=== PATIENT | male | born 1945 | race Caucasian/White ===

== ENCOUNTER 2021-03-07 13:24 | Emergency (ER) | payer OTHER ==
[~2021-03-07] VITALS: Ht 175.3 cm; Wt 77.1 kg
[2021-03-07 13:30] VITALS: BP 111/60
--- NOTE | 2021-03-07 13:30 | NUR ---
75 YO M BIBA WITH A C/C OF VOMITING X3 WITH COFFEE GROUND EMESIS. PT IS UBABLE BUT IS ALERT AND MAKES FACIAL EXPRESSIONS. PICC LINE ON DANNI. PMH: CHRONIC RESPIRATORY FAILURE, TRACH DEPENDENCE, PEG DEPENDENT, NECROTIZING AUTOIMMUNE MYOSITIS, DM 2, CKD, HTN, CAD, STROKE.
[2021-03-07] MEDS ORDERED: NACL 0.9% 1,000 ML IV ONE (14:00)
[2021-03-07 14:33] LABS: BASOPHILS # (AUTO) 0.1 K/uL (0.00-0.22); BASOPHILS % (AUTO) 0.6 % (0.0-2.0); EOSINOPHILS # (AUTO) 0.2 K/uL (0-0.4); EOSINOPHILS % (AUTO) 1.1 % (0.0-4.0); HEMATOCRIT 22.4 % (36-52); HEMOGLOBIN 7.3 g/dL (12.0-18.0); LYMPHOCYTES # (AUTO) 2.7 K/uL (2.0-11.5); LYMPHOCYTES % (AUTO) 14.7 % (20.5-51.1); MEAN CORPUSCULAR HEMOGLOBIN 31 pg (27-31); MEAN CORPUSCULAR HGB CONC 33 g/dL (33-37); MEAN CORPUSCULAR VOLUME 93.2 fL (80-94); MONOCYTES # (AUTO) 1.7 K/uL (0.8-1.0); MONOCYTES % (AUTO) 9.4 % (1.7-9.3); NEUTROPHILS # (AUTO) 13.7 K/uL (1.8-7.7); NEUTROPHILS % (AUTO) 74.2 % (42.2-75.2); PLATELET COUNT (AUTO) 325 K/uL (140-450); RED BLOOD CELL COUNT(AUTO) 2.41 MIL/uL (4.20-6.10); RED CELL DISTRIBUTION WIDTH 18.4 % (11.6-13.7); WHITE BLOOD COUNT (AUTO) 18.4 K/uL (4.8-10.8)
[2021-03-07 14:53] LABS: PROTHROMBIN TIME 10.9 secs (10.8-13.4)
[2021-03-07 14:55] LABS: ALBUMIN 2.5 g/dL (3.4-5.0); ANION GAP 8.2 (8-16); ASPARTATE AMINOTRANSFERASE 27 U/L (15-37); CARBON DIOXIDE 34.2 mmol/L (21-32); CHLORIDE 115 mmol/L (98-107); GLUCOSE 124 mg/dL (74-106); LIPASE 279 U/L (73-393); POTASSIUM 3.4 mmol/L (3.5-5.1); SODIUM SERUM 154 mmol/L (136-145); TOTAL BILIRUBIN 0.4 mg/dL (0.0-1.0)
[2021-03-07 15:01] LABS: CREATININE 4.1 mg/dL (0.6-1.3); UREA NITROGEN, BLOOD 154 mg/dL (7-18)
[2021-03-07 16:35] VITALS: BP 121/64
--- NOTE | 2021-03-07 16:47 | NUR ---
GAVE REPORT TO LAURA FROM [facility] FOR THE CONTINUITY OF CARE. [facility] TOOK PT VIA AMBULANCE.
--- NOTE | 2021-03-07 17:31 | NUR ---
Patient discharged with v/s stable. Written and verbal after care instructions given and explained. Patient alert, oriented and verbalized understanding of instructions. Ambulance Transport with to half-way. All questions addressed prior to discharge. ID band removed. Patient advised to follow up with PMD. NO Rx given. Patient educated on indication of medication including possible reaction and side effects. Opportunity to ask questions provided and answered.
== END 2021-03-07 16:35 ==
LOC: MED 13:24
DX: R11.10 Vomiting, unspecified (principal); J18.1 Lobar pneumonia, unspecified organism; E11.22 Type 2 diabetes mellitus with diabetic chronic kidney disease; I12.9 Hypertensive chronic kidney disease with stage 1 through stage 4 chronic kidney disease, or unspecified chronic kidney disease; N18.9 Chronic kidney disease, unspecified; Z86.73 Personal history of transient ischemic attack (TIA), and cerebral infarction without residual deficits; Z88.8 Allergy status to other drugs, medicaments and biological substances
CPT/HCPCS: 36415; 71045; 80053; 83690; 84484; 85025; 85610; 85730; 86886; 86900; 86901; 93005; 96360; 99285; J7030; Q0092

== ENCOUNTER 2021-03-19 16:06 | Inpatient (IN) | payer OTHER, SELFPAY ==
[~2021-03-19] VITALS: Ht 165.1 cm; Wt 74.4 kg
[2021-03-19 16:42] LABS: BASOPHILS % (AUTO) 0.2 % (0.0-2.0); MEAN CORPUSCULAR HGB CONC 33 g/dL (33-37); WHITE BLOOD COUNT (AUTO) 13.9 K/uL (4.8-10.8)
[2021-03-19 16:46] LABS: EOSINOPHILS # (AUTO) 1.2 K/uL (0-0.4); EOSINOPHILS % (AUTO) 8.5 % (0.0-4.0); LYMPHOCYTES # (AUTO) 1.5 K/uL (2.0-11.5); LYMPHOCYTES % (AUTO) 10.7 % (20.5-51.1); MEAN CORPUSCULAR HEMOGLOBIN 31 pg (27-31); MEAN CORPUSCULAR VOLUME 96.2 fL (80-94); MONOCYTES # (AUTO) 0.6 K/uL (0.8-1.0); MONOCYTES % (AUTO) 4.3 % (1.7-9.3); NEUTROPHILS # (AUTO) 10.6 K/uL (1.8-7.7); NEUTROPHILS % (AUTO) 76.3 % (42.2-75.2); PLATELET COUNT (AUTO) 254 K/uL (140-450); RED BLOOD CELL COUNT(AUTO) 1.82 MIL/uL (4.20-6.10); RED CELL DISTRIBUTION WIDTH 19.8 % (11.6-13.7)
[2021-03-19 16:57] VITALS: BP 105/70
[2021-03-19 17:06] LABS: HEMOGLOBIN 5.7 g/dL (12.0-18.0)
[2021-03-19 17:07] LABS: HEMATOCRIT 17.5 % (36-52)
--- NOTE | 2021-03-19 17:10 | NUR ---
PT KERRY TO BED 06 VIA ROMEL.
--- NOTE | 2021-03-19 17:15 | NUR ---
PT BIB SNF TRACH TO VENT FOR LOW HGB. PT ALERT ORIENTED. IV INSERTED TO RIGHT THUMB #20GUAGE BLOOD DRAWN AND SENT.
--- NOTE | 2021-03-19 19:16 | NUR ---
REPORT RECEIVED FROM STEF DOWLING FOR CONTINUITY OF PT CARE AT THIS TIME.
--- NOTE | 2021-03-19 19:38 | NUR ---
PT APPEARS TO BE RESTING W EYES CLOSED IN SUPINE AND SLIGHT R LATERAL POSITION W HOB SLIGHTLY ELEVATED. BED LOCKED IN LOWEST POSITION W X2 SIDERAILS UP FOR PT SAFETY. PT CONNNECTED TO MONITOR W VSS. PT CONNECTED TO VENT W SETTINGS OF A/C VC, 40% FiO2, 450 VT, PEEP 5, PT TOLERATING VENT WELL. NAD NOTED, WILL CONTINUE TO MONITOR.
[2021-03-19 19:44] VITALS: BP 100/33
[2021-03-19 20:11] LABS: ANION GAP 14.1 (8-16); ASPARTATE AMINOTRANSFERASE 26 U/L (15-37); CARBON DIOXIDE 25.9 mmol/L (21-32); CHLORIDE 125 mmol/L (98-107); GLUCOSE 96 mg/dL (74-106); TOTAL BILIRUBIN 0.2 mg/dL (0.0-1.0)
[2021-03-19 20:25] LABS: PROTHROMBIN TIME 10.9 secs (10.8-13.4)
[2021-03-19 20:45] LABS: CREATININE 4.9 mg/dL (0.6-1.3); SODIUM SERUM 160 mmol/L (136-145); UREA NITROGEN, BLOOD 118 mg/dL (7-18)
--- NOTE | 2021-03-19 21:00 | NUR ---
RENEE SWAB COLLECTED AND SENT TO LAB.
--- NOTE | 2021-03-19 21:12 | NUR ---
PT APPEARS TO BE RESTING W EYES CLOSED. CONNECTED TO VENT AND MONITOR. VSS. NAD NOTED WILL CONTINUE TO MONITOR.
[2021-03-19] MEDS ORDERED: OCTREOTIDE ACETATE 1.25 MG in NACL 0.9% 250 ML IV SCH (22:05)
[2021-03-19] MEDS ORDERED: SODIUM FERRIC GLUCONATE 125 MG in NACL 0.9% 100 ML IV SCH (22:05)
--- NOTE | 2021-03-19 23:05 | NUR ---
PT REPOSITIONED FOR COMFORT. VSS. BREATHING EVEN AND UNLABORED. NAD NOTED, WILL CONTINUE TO MONITOR.
--- NOTE | 2021-03-19 23:08 | NUR ---
2240 CHECKED PT ON VENT. NO SOB NOTED
--- NOTE | 2021-03-20 00:26 | NUR ---
NO SANDOSTATIN IN ER. HOUSE SUP CONTACTED.
--- NOTE | 2021-03-20 00:26 | NUR ---
Jolie perez in ED - 03/20/21 at 0026 by [email or web address] NO SANDOSTATIN IN ER. HOUSE SUP CONTACTED.
[2021-03-20] MEDS ORDERED: OCTREOTIDE ACETATE 1000 MCG/5 ML VIAL ONE (00:32)
--- NOTE | 2021-03-20 01:05 | NUR ---
PT BLOOD TRANSFUSION COMPLETED. VSS. PT DENIES ANY PAIN. NAD NOTED, WILL CONTINUE TO MONITOR.
[2021-03-20 01:21] VITALS: BP 95/47
--- NOTE | 2021-03-20 02:22 | NUR ---
Patient will be admitted to care of Michael BALL. Admited to telemetry. Will go to [id number]. Belongings list completed. Report to Fede FINCH.
[2021-03-20] MEDS ORDERED: ACETAMINOPHEN 650 MG SUPP RC ONE (02:34)
--- NOTE | 2021-03-20 02:40 | NUR ---
tylenol suppository placed in patient. tolerated well.
--- NOTE | 2021-03-20 02:43 | NUR ---
provided richi care for patient. repositioned to the right side-- tolerated well.
[2021-03-20] MEDS ORDERED: ACETAMINOPHEN 650 MG SUPP RC SCH (02:50)
--- NOTE | 2021-03-20 03:20 | NUR ---
PT WAS TRANSPORTED VIA GURNEY. PT IS NOT IN ANY DISTRESS. PT IS TRACH TO VENT. FIO2 40%. VT 450. RT 20. PEEP 5. PT HAS A 20 GAUGE RIGHT DUMB. 24 GAUGE ON THE RIGHT WRIST. PT IS NPO. NO TUBE FEEDING. PT LUNGS SOUNDS RHONCHI ON INSPIRATORY. ACTIVE BOWEL SOUNDS. PT IS BEDBOUND. PT WAS EDUCATED MEDICAL TECHNOLOGIST CHEMISTRY LIGHT SYSTEM, ROOM ENVIRONMENT, AND STAFF. ALL SAFETY MEASURES TAKEN. WILL CONTINUE TO MONITOR THE PT.
--- NOTE | 2021-03-20 03:21 | NUR ---
Patient will be admitted to care of DR. VALDES. Admited to TELEMETRY. Will go to room 124-A. Belongings list completed. Report to STEF MARTINEZ BY STEF LONGO.
--- NOTE | 2021-03-20 03:40 | NUR ---
PT TRANSPORTED FROM ED6 TO 125 W/ NO ADVERSE EVENTS PT TOLERATED TRANSPORT WELL VENT PLUGGED INTO RED OUTLET AND ALARMS REMAIN ON AND AUDIBLE AMBU WAS PLACED @ BEDSIDE
[2021-03-20 04:00] VITALS: BP 72/36
--- NOTE | 2021-03-20 06:00 | NUR ---
PT IS SLEEPING IN BED COMFORTABLY. PT IS NOT IN ANY DISTRESS. VISIBLE CHEST RISE AND FALL. BED AT THE LOWEST POSITION. HEAD OF BED RAISED. ALL SAFETY MEASURES TAKEN. WILL CONTINUE TO MONITOR THE PT.
--- NOTE | 2021-03-20 07:30 | NUR ---
ENDORSED PT TO DAY SHIFT RN FOR CONTINUITY OF CARE. PT IS STABLE.
--- NOTE | 2021-03-20 07:30 | NUR ---
Received pt on bed AAOx3. no SOB noted. no signs of pain at this time. pt on mechanical vent, but pt able to do mouth words for his needs. chest, diminished air entry to the bases. IV to RT hand and rt wrist patent and intact. abdomen soft, bowel sounds present. will reposition pt every 2 hrs. secretions suctioned as needed. instructed pt on NPO, pt nodded for understanding. bed on low position, with 3 side rails raised. with will continue to monitor.
[2021-03-20 08:00] VITALS: BP 103/64
[2021-03-20 08:32] LABS: BASOPHILS % (AUTO) 0.1 % (0.0-2.0); EOSINOPHILS # (AUTO) 1.3 K/uL (0-0.4); HEMATOCRIT 23.2 % (36-52); HEMOGLOBIN 7.7 g/dL (12.0-18.0); LYMPHOCYTES # (AUTO) 2.4 K/uL (2.0-11.5); LYMPHOCYTES % (AUTO) 13.1 % (20.5-51.1); MEAN CORPUSCULAR HEMOGLOBIN 31 pg (27-31); MEAN CORPUSCULAR HGB CONC 33 g/dL (33-37); MEAN CORPUSCULAR VOLUME 94.2 fL (80-94); MONOCYTES # (AUTO) 0.9 K/uL (0.8-1.0); NEUTROPHILS # (AUTO) 13.5 K/uL (1.8-7.7); NEUTROPHILS % (AUTO) 74.8 % (42.2-75.2); PLATELET COUNT (AUTO) 248 K/uL (140-450); RED BLOOD CELL COUNT(AUTO) 2.46 MIL/uL (4.20-6.10); RED CELL DISTRIBUTION WIDTH 19.1 % (11.6-13.7)
[2021-03-20] MEDS ORDERED: POTASSIUM CHLORIDE 10 MEQ TABER PO PRN (09:05)
[2021-03-20] MEDS ORDERED: MORPHINE SULFATE 2 MG/ML SYR IVP PRN (09:05)
[2021-03-20] MEDS ORDERED: MAG SULF 2000 MG/WATER PREMIX 50 ML IV PRN (09:05)
[2021-03-20] MEDS ORDERED: NACL 0.9% 1,000 ML IV SCH (09:05)
[2021-03-20] MEDS ORDERED: HYDROcodone/APAP 5/325 MG 1 TAB TAB PO PRN (09:05)
[2021-03-20] MEDS ORDERED: ZOLPIDEM 5 MG TAB PO PRN (09:05)
[2021-03-20] MEDS ORDERED: ACETAMINOPHEN 325 MG TAB PO PRN (09:05)
[2021-03-20] MEDS ORDERED: ONDANSETRON 4 MG/2 ML VIAL IM/IVP PRN (09:05)
[2021-03-20] MEDS ORDERED: DOCUSATE SODIUM 100 MG GELCAP PO PRN (09:05)
--- NOTE | 2021-03-20 09:06 | NUR ---
PATIENT HAS BEEN SCREENED AND CATEGORIZED HIGH NUTRITION RISK. PATIENT WILL BE SEEN WITHIN 1-2 DAYS OF ADMISSION. / KEIRA HUNG RD
[2021-03-20 09:30] LABS: ANION GAP 19.4 (8-16); CARBON DIOXIDE 23.6 mmol/L (21-32); CHLORIDE 125 mmol/L (98-107); GLUCOSE 100 mg/dL (74-106)
[2021-03-20 09:43] LABS: CHOL/HDL RATIO 6.6 (1-4.5); THYROID STIMULATING HORMONE 0.86 uIU/mL (0.34-3.74)
[2021-03-20 09:50] LABS: CREATININE 5.1 mg/dL (0.6-1.3); SODIUM SERUM 163 mmol/L (136-145); UREA NITROGEN, BLOOD 120 mg/dL (7-18)
--- NOTE | 2021-03-20 10:01 | NUR ---
FOLLOWED UP FOR NEPHRO CONSULT, ANA M WRAY LETTUCE CUTTER PER EXCHANGE, AWAITING FOR CALL BACK.
[2021-03-20] MEDS: PANTOPRAZOLE 40 MG INJ VIAL IVP SCH ×2 (11:00→21:00)
[2021-03-20] MEDS: SODIUM FERRIC GLUCONATE 125 MG in NACL 0.9% 100 ML IV SCH (11:01)
[2021-03-20 12:00] VITALS: BP 126/54
[2021-03-20] MEDS ORDERED: MAGNESIUM CITRATE 300 ML BTL PO ONE (14:45)
--- NOTE | 2021-03-20 15:00 | NUR ---
PT SEEN BY DR. AQUINO WITH NEW ORDERS.
[2021-03-20 16:00] VITALS: BP 151/71
--- NOTE | 2021-03-20 16:00 | NUR ---
G-TUBE (JEVITY 1.2) STARTED AT 20 ML/HR. RESIDUAL OF 15 MLS NOTED.
[2021-03-20] MEDS: DEXT 5% / NACL 0.2% 1,000 ML IV SCH (16:13)
--- NOTE | 2021-03-20 17:00 | NUR ---
PT'S VINITA CALLED FOR UPDATES. VERBALIZED UNDERSTANDING.
[2021-03-20] MEDS: LACTULOSE 20 GM/30 ML UDC PO SCH (17:28)
[2021-03-20] MEDS: METOCLOPRAMIDE 10 MG/2 ML INJ VIAL IVP SCH ×2 (17:29→23:00)
[2021-03-20] MEDS ORDERED: MAGNESIUM CITRATE 300 ML BTL PO SCH (17:30)
--- NOTE | 2021-03-20 17:30 | NUR ---
LORENZO CATHETER INSERTED, URINE SPECIMEN SENT TO LAB ORDERED.
--- NOTE | 2021-03-20 18:59 | NUR ---
PT RESTING. NO SOB NOTED. NO SIGNS OF PAIN AT THIS TIME. WILL ENDORSE TO NEXT SHIFT NURSE FOR CONTINUITY OF CARE.
[2021-03-20 20:00] VITALS: BP 144/77
[2021-03-20] MEDS ORDERED: metroNIDAZOLE 500 MG/NS PREMIX 100 ML IV SCH (21:00)
[2021-03-20 21:59] LABS: APPEARANCE,URINE CLEAR (CLEAR); BILIRUBIN,URINE NEGATIVE (NEGATIVE); BLOOD, URINE 2+ (NEGATIVE); COLOR,URINE YELLOW (YELLOW); LEUKOCYTE ESTERASE ,URINE NEGATIVE (NEGATIVE); NITRITE, URINE NEGATIVE (NEGATIVE); UGLUCOSE NEGATIVE (NEGATIVE)
[2021-03-20 22:01] LABS: RBC,URINE 0-5 /HPF (0-5); WBC,URINE 0-5 /HPF (0-5)
[2021-03-21] VITALS: BP 140/72
--- NOTE | 2021-03-21 01:20 | NUR ---
PATIENT HAS TRACH TO VENT RATE 20 ,TV450, FI02 40 % PEEP 5 SAT 100%. PATIENT SLEPT FROM 1999 TO 5 IS ALERT NO C/O. LUNGS DIMINISH TEMP 98.2 HAS IV D5NS 80 HOUR. HAS G-TUBE JEVITY 20 HOUR. HAS F/C DRAINING YELLOW URINE. NO SIGNS OF ACUTE DISTRESS AT THIS TIME.
[2021-03-21 04:00] VITALS: BP 135/70
[2021-03-21] MEDS: DEXT 5% / NACL 0.2% 1,000 ML IV SCH ×2 (07:00→10:43)
[2021-03-21] MEDS: METOCLOPRAMIDE 10 MG/2 ML INJ VIAL IVP SCH ×2 (07:00→14:37)
[2021-03-21 07:02] LABS: ANION GAP 16.3 (8-16); CARBON DIOXIDE 25.5 mmol/L (21-32); CHLORIDE 121 mmol/L (98-107); GLUCOSE 189 mg/dL (74-106); POTASSIUM 4.8 mmol/L (3.5-5.1)
--- NOTE | 2021-03-21 07:02 | NUR ---
CALLED WAS TOLD ABOUT TROPONIN AT 0240 9.681 AND BLOOD SUGAR 53 PATIENT WAS GIVEN D 50 IVP. RECHECKED 0635 BLOOD SUGAR 163. ORDERED PROFESSIONAL ATHLETES COACH CONSULT, AND START A HEPARIN DRIP. Addendum: 03/21/21 at 0710 by Agency 11 STEF RN WRONG PATIENT
[2021-03-21 07:12] LABS: BASOPHILS % (AUTO) 0.2 % (0.0-2.0); EOSINOPHILS # (AUTO) 1.3 K/uL (0-0.4); EOSINOPHILS % (AUTO) 11.8 % (0.0-4.0); HEMATOCRIT 21.5 % (36-52); HEMOGLOBIN 7.3 g/dL (12.0-18.0); LYMPHOCYTES # (AUTO) 1.7 K/uL (2.0-11.5); MEAN CORPUSCULAR HEMOGLOBIN 31 pg (27-31); MEAN CORPUSCULAR HGB CONC 34 g/dL (33-37); MONOCYTES # (AUTO) 0.6 K/uL (0.8-1.0); MONOCYTES % (AUTO) 5.6 % (1.7-9.3); NEUTROPHILS # (AUTO) 7.5 K/uL (1.8-7.7); NEUTROPHILS % (AUTO) 67.4 % (42.2-75.2); PLATELET COUNT (AUTO) 289 K/uL (140-450); RED BLOOD CELL COUNT(AUTO) 2.32 MIL/uL (4.20-6.10); RED CELL DISTRIBUTION WIDTH 18.3 % (11.6-13.7); WHITE BLOOD COUNT (AUTO) 11.1 K/uL (4.8-10.8)
[2021-03-21 07:30] LABS: MAGNESIUM 2.2 mg/dL (1.8-2.4); PHOSPHORUS 5.8 mg/dL (2.5-4.9)
--- NOTE | 2021-03-21 07:50 | NUR ---
RECEIVED REPORT FROM LEAD PRESS OPERATOR NURSE FOR CONTINUITY OF CARE. PT IS AWAKE AND ALERT. ON TRACH TO VENT WITH O2 SAT 95%. SR ON TELE MONITOR. G TUBE IN PLACE INFUSING FEEDING. LORENZO CATH IN PLACE. SKIN IS WARM, DRY, AND INTACT. IV IS IN THE RIGHT HAND INFUSING FLUIDS ORDERED. PT IS STABLE. PLAN OF CARE DISCUSSED.
[2021-03-21 08:00] VITALS: BP 138/82
[2021-03-21 08:46] LABS: SODIUM SERUM 158 mmol/L (136-145); UREA NITROGEN, BLOOD 105 mg/dL (7-18)
[2021-03-21] MEDS: SODIUM FERRIC GLUCONATE 125 MG in NACL 0.9% 100 ML IV SCH (09:00)
--- NOTE | 2021-03-21 10:00 | NUR ---
PT HAD A MODERATE SIZED BM. BM WAS BROWN AND SOFT. PT WAS CHANGED AND REPOSITIONED. ORAL CARE WAS PROVIDED. G TUBE RESIDUAL WAS LESS THAN 5 ML. TRACH TO VENT WITH O2 SAT AT 95%. PT IS STABLE.
[2021-03-21] MEDS: LACTULOSE 20 GM/30 ML UDC PO SCH ×3 (10:39→17:36)
[2021-03-21] MEDS: PANTOPRAZOLE 40 MG INJ VIAL IVP SCH (10:39)
[2021-03-21] MEDS: EPOETIN ALFA-EPBX 10,000 UNITS/ML VIAL IV SCH (10:41)
[2021-03-21 12:00] VITALS: BP 153/91
--- NOTE | 2021-03-21 12:14 | NUR ---
ROUNDED ON PT. HE ASKED TO TURN OFF THE TV. PT IS ABLE TO MAKE NEEDS KNOWN. NO RESPIRATORY DISTRESS NOTED ON TRACH TO VENT. PT DENIES PAIN AT THIS TIME. IV IS PATENT AND INTACT, INFUSING FLUIDS ORDERED. WILL CONTINUE TO MONITOR.
--- NOTE | 2021-03-21 14:30 | NUR ---
ROUNDED ON PT. DIAPER WAS DRY AND IN PLACE. NO RESPIRATORY DISTRESS NOTED ON TRACH TO VENT. O2 SAT IS 98%. PT IS STABLE. WILL CONTINUE TO MONITOR.
--- NOTE | 2021-03-21 15:52 | NUR ---
03/21/21 RD INITIAL ASSESSMENT COMPLETED PLEASE REFER TO NUTRITION ASSESSMENT UNDER CARE ACTIVITY FOR ESTIMATED NUTRITIONAL NEEDS. 1. WHEN/IF MEDICALLY APPROPRIATE, RECOMMEND NEPRO WITH A GOAL RATE OF 30 ML/HR -FWF: 150 ML Q6H OR PER MD -START AT 10 ML/HR AND INCREASE BY 10 ML Q8H TOLERATED -WILL PROVIDE 1296 KCAL AND 58 GM PROTEIN, MEETING ESTIMATED NUTRITIONAL GOALS 2. MONITOR NUTRITION-RELATED LABS 3. RD TO FOLLOW-UP 2-3 DAYS, HIGH RISK KEIRA HUNG RD
[2021-03-21 16:00] VITALS: BP 147/79
--- NOTE | 2021-03-21 16:30 | NUR ---
PT IS STABLE. CHANGED AND REPOSITIONED. PT HAD ANOTHER BM. LIQUID AND BROWN IN COLOR. IV IS IN PLACE AND INTACT. G TUBE INFUSING FEEDING ORDERED. WILL CONTINUE TO MONITOR.
--- NOTE | 2021-03-21 18:53 | NUR ---
PT WAS STABLE THROUGHOUT SHIFT. NO DISTRESS NOTED AT THIS TIME. WILL ENDORSE TO SELECTOR PACKER NURSE FOR CONTINUITY OF CARE AND DISCUSS PLAN OF CARE.
[2021-03-21 23:10] VITALS: BP 138/84
[2021-03-22] VITALS: BP 146/77
[2021-03-22] MEDS: DEXT 5% / NACL 0.2% 1,000 ML IV SCH ×2 (01:34→16:33)
[2021-03-22 05:32] VITALS: BP 140/70
[2021-03-22] MEDS: LANSOPRAZOLE 30 MG CAPDR PO SCH (05:42)
[2021-03-22 06:14] LABS: CREATININE,URINE RANDOM 38 mg/dL (30-125)
[2021-03-22 06:15] LABS: URINE SODIUM, RANDOM 109 mmol/l (40-220)
[2021-03-22 06:44] LABS: BASOPHILS % (AUTO) 0.1 % (0.0-2.0); EOSINOPHILS # (AUTO) 1.5 K/uL (0-0.4); EOSINOPHILS % (AUTO) 12.2 % (0.0-4.0); HEMATOCRIT 23.2 % (36-52); HEMOGLOBIN 7.7 g/dL (12.0-18.0); LYMPHOCYTES # (AUTO) 2.3 K/uL (2.0-11.5); LYMPHOCYTES % (AUTO) 18.7 % (20.5-51.1); MEAN CORPUSCULAR HEMOGLOBIN 31 pg (27-31); MEAN CORPUSCULAR HGB CONC 33 g/dL (33-37); MEAN CORPUSCULAR VOLUME 93.6 fL (80-94); MONOCYTES # (AUTO) 0.9 K/uL (0.8-1.0); MONOCYTES % (AUTO) 7.1 % (1.7-9.3); NEUTROPHILS # (AUTO) 7.5 K/uL (1.8-7.7); NEUTROPHILS % (AUTO) 61.9 % (42.2-75.2); PLATELET COUNT (AUTO) 248 K/uL (140-450); RED BLOOD CELL COUNT(AUTO) 2.48 MIL/uL (4.20-6.10); WHITE BLOOD COUNT (AUTO) 12.1 K/uL (4.8-10.8)
--- NOTE | 2021-03-22 07:30 | NUR ---
RECEIVED BEDSIDE REPORT FROM PRENATAL GENETIC COUNSELOR NURSE FOR CONTINUITY OF CARE. PT IS AWAKE AND ALERT. ON TRACH TO VENT WITH BREATHING UNLABORED.O2 SAT IS 94%. SR ON TELE MONITOR. G TUBE IN PLACE INFUSING FEEDING ORDERED. LORENZO CATH IN PLACE. SKIN IS WARM, DRY, AND INTACT. IV IS IN THE RIGHT HAND INFUSING FLUIDS ORDERED. PT IS STABLE. PLAN OF CARE DISCUSSED.
--- NOTE | 2021-03-22 07:40 | NUR ---
BODY AND FRAME TECHNICIAN NURSE ENDORSED THAT SHE COLLECTED THE STOOL SAMPLE AND SENT IT TO LAB. WILL WAIT FOR RESULTS.
[2021-03-22 08:00] VITALS: BP 157/72
[2021-03-22 08:06] LABS: PHOSPHORUS 4.5 mg/dL (2.5-4.9)
[2021-03-22 08:13] LABS: ANION GAP 17.8 (8-16); CHLORIDE 119 mmol/L (98-107); GLUCOSE 170 mg/dL (74-106); POTASSIUM 3.8 mmol/L (3.5-5.1)
[2021-03-22 08:39] LABS: SODIUM SERUM 156 mmol/L (136-145)
[2021-03-22 08:42] LABS: CREATININE 4.2 mg/dL (0.6-1.3); UREA NITROGEN, BLOOD 79 mg/dL (7-18)
[2021-03-22] MEDS: LACTULOSE 20 GM/30 ML UDC PO SCH (08:49)
--- NOTE | 2021-03-22 09:30 | NUR ---
PT HAD A LIQUID BM. BROWN IN COLOR AND LARGE IN AMOUNT. PT WAS GIVEN BED BATH AND LINENS WERE CHANGED. G TUBE FEEDING IS INFUSING ORDERED. MINIMAL RESIDUAL NOTED. LORENZO CATH IN PLACE. NO RESPIRATORY DISTRESS NOTED ON TRACH TO VENT. O2 SAT IS 95%. WILL CONTINUE TO MONITOR.
[2021-03-22 10:06] LABS: FOLIC ACID > 20.00 ng/mL (>3.0)
--- NOTE | 2021-03-22 11:30 | NUR ---
PT IS STABLE. REPOSITIONED ORDERED. DIAPER IS DRY AND INTACT. G TUBE FEEDING IS INFUSING. WILL CONTINUE TO MONITOR.
[2021-03-22 12:00] VITALS: BP 137/74
--- NOTE | 2021-03-22 13:30 | NUR ---
PT IS AWAKE AND ALERT. STABLE AT THIS TIME. WILL CONTINUE TO MONITOR.
--- NOTE | 2021-03-22 14:21 | NUR ---
NEW IV PLACED IN THE RIGHT HAND 24 GAUGE. PATENT AND INTACT. WRAPPED WITH HAND BOARD TO PREVENT PT FROM BENDING WRIST OR PULLING OUT IV AGAIN.
[2021-03-22 16:00] VITALS: BP 159/79
--- NOTE | 2021-03-22 16:30 | NUR ---
PT HAD A BM. PT WAS CHANGED AND REPOSITIONED. IV STILL INTACT. NO DISTRESS NOTED. WILL CONTINUE TO MONITOR.
--- NOTE | 2021-03-22 17:00 | NUR ---
CALLED LAB TO ASK ABOUT THE STOOL SAMPLE RESULTS. PERSONAL COACH SAID SHE DID NOT HAVE THE SAMPLE. WILL HAVE TO RESEND SAMPLE OF STOOL TO LAB.
--- NOTE | 2021-03-22 19:24 | NUR ---
ENDORSED PT TO VISUAL SPECIALIST NURSE FOR CONTINUITY OF CARE. PT IS STABLE. PLAN OF CARE DISCUSSED.
--- NOTE | 2021-03-22 20:28 | NUR ---
DURING O2 CHECK PT VOMITED. SUCTIONED THE PT THOROUGHLY CHANGED HME AND RAMOS. NOTIFIED RN.
[2021-03-22 22:46] VITALS: BP 149/85
--- NOTE | 2021-03-22 22:49 | NUR ---
the patient vitals are stable . the patient vomited once , feeding is on hold for one hour zofran was given ivp
[2021-03-22] MEDS: LORazepam 2 MG/ML VIAL IM/IVP PRN (23:38)
--- NOTE | 2021-03-22 23:38 | NUR ---
the patienbt is trachtovent and anxious. ativan was given
[2021-03-23 05:27] LABS: BASOPHILS % (AUTO) 0.1 % (0.0-2.0); EOSINOPHILS # (AUTO) 1.1 K/uL (0-0.4); EOSINOPHILS % (AUTO) 6.9 % (0.0-4.0); HEMATOCRIT 23.1 % (36-52); HEMOGLOBIN 7.9 g/dL (12.0-18.0); LYMPHOCYTES # (AUTO) 3.6 K/uL (2.0-11.5); LYMPHOCYTES % (AUTO) 23.3 % (20.5-51.1); MEAN CORPUSCULAR HEMOGLOBIN 31 pg (27-31); MEAN CORPUSCULAR HGB CONC 34 g/dL (33-37); MEAN CORPUSCULAR VOLUME 92.1 fL (80-94); MONOCYTES # (AUTO) 1.1 K/uL (0.8-1.0); MONOCYTES % (AUTO) 6.8 % (1.7-9.3); NEUTROPHILS # (AUTO) 9.7 K/uL (1.8-7.7); NEUTROPHILS % (AUTO) 62.9 % (42.2-75.2); PLATELET COUNT (AUTO) 277 K/uL (140-450); RED BLOOD CELL COUNT(AUTO) 2.51 MIL/uL (4.20-6.10); WHITE BLOOD COUNT (AUTO) 15.5 K/uL (4.8-10.8)
[2021-03-23 06:27] LABS: ANION GAP 14.6 (8-16); CARBON DIOXIDE 23.8 mmol/L (21-32); CHLORIDE 112 mmol/L (98-107); CREATININE 3.5 mg/dL (0.6-1.3); GLUCOSE 141 mg/dL (74-106); POTASSIUM 3.4 mmol/L (3.5-5.1); SODIUM SERUM 147 mmol/L (136-145); UREA NITROGEN, BLOOD 59 mg/dL (7-18)
[2021-03-23 06:34] LABS: MAGNESIUM 1.5 mg/dL (1.8-2.4); PHOSPHORUS 2.8 mg/dL (2.5-4.9)
[2021-03-23 06:44] VITALS: BP 142/87
[2021-03-23] MEDS: DEXT 5% / NACL 0.2% 1,000 ML IV SCH ×2 (06:45→22:00)
[2021-03-23] MEDS: LANSOPRAZOLE 30 MG CAPDR PO SCH (06:50)
[2021-03-23] MEDS: LACTULOSE 20 GM/30 ML UDC PO SCH (08:20)
[2021-03-23] MEDS: EPOETIN ALFA-EPBX 10,000 UNITS/ML VIAL IV SCH (08:20)
[2021-03-23 12:00] VITALS: BP 116/59
[2021-03-23] MEDS: CLINDAMYCIN 600 MG in DEXTROSE 5% 50 ML IV SCH ×2 (12:26→22:00)
--- NOTE | 2021-03-23 14:00 | NUR ---
[place] PL[place] [facility] [place]POKE TO JEANNE FROM ADMISSIONS TO INFORM HER ABOUT PATIENT PLANNED DC FROM [facility] TOMORROW BACK TO THEIR FACILITY. [facility] FAXED PATIENT'S INFORMATION AND CLINICALS AT WITH COMPLETE CONFIRMATION AT ABOUT 14:19. JEANNE AGREED TO REVIEW CLINICALS AND WILL CALL BACK SOON POSSIBLE JEANNE FROM [facility] BACK STATING THAT PATIENT INFORMATION WAS REVIEW AND COMPLETED AND HE IS TO RETURN BACK TO THEIR FACILITY WHEN HE IS READY FOR DC, POSSIBLY TOMORROW TO ROOM # 126 BED C WITH ACCEPTING MD WILSON. [facility] AGREED AND THANKED JEANNE FOR THE INFORMATION AND SW WILL ENDORSE INFORMATION TO RN. PATIENT IS ON A VENT AND WILL NEED [facility] TRANSPORT SET UP AT DISCHARGE BY [facility] STAFF.
--- NOTE | 2021-03-23 15:25 | NUR ---
03/23/21 RD FOLLOW UP COMPLETED PLEASE REFER TO NUTRITION ASSESSMENT UNDER CARE ACTIVITY FOR ESTIMATED NUTRITIONAL NEEDS. 1. CONTINUE JEVITY 1.2 @ 50 ML/HR TOLERATED 2. IF PT SHOWS GI SYMPTOMS, RECOMMEND CHANGING TF FORMULA TO NEPRO WITH A GOAL RATE OF 30 ML/HR -FWF: 150 ML Q6H OR PER MD -WILL PROVIDE 1296 KCAL AND 58 GM PROTEIN, MEETING ESTIMATED NUTRITIONAL GOALS 3. MONITOR NUTRITION-RELATED LABS 4. RD TO FOLLOW-UP 2-3 DAYS, HIGH RISK KEIRA HUNG RD
[2021-03-23 16:00] VITALS: BP 111/53
[2021-03-23 22:09] VITALS: BP 119/60
[2021-03-24 03:34] VITALS: BP 124/67
[2021-03-24] MEDS: CLINDAMYCIN 600 MG in DEXTROSE 5% 50 ML IV SCH ×2 (05:00→12:08)
[2021-03-24] MEDS: LANSOPRAZOLE 30 MG CAPDR PO SCH (06:02)
--- NOTE | 2021-03-24 07:15 | NUR ---
RECEIVED PT FROM NIGHT RN, PT IS AWAKE AND ON A HIGH FLOW NC AT FIO2 AT 100%, O2 AT 40L, PT IS SATURATING AT 92%, AWAKE, ALERT AND ORIENTED, SEATED ON THE BED, WITH SIDE RAILS UP AND CALL LIGHT WITHIN REACH, IV LINE NOTED ON THE RAC G. 20 AND ON CONTINUOUS HEPARIN DRIP AT 1900 UNITS/HR(19ML/HR), NO SIGN OF DISTRESS NOTED AND WILL CONTINUE TO MONITOR PT. Addendum: 03/24/21 at 1134 by Mariah Stern RN THE NOTES ABOVE IS NOT INTENDED FOR THE PT.
--- NOTE | 2021-03-24 07:20 | NUR ---
RECEIVED PT FROM NIGHT RN, PT IS ASLEEP AND LYING ON THE BED, RESPIRATION IS EVEN, VISIBLE CHEST RISE AND FALL, ON A TRACH TO VENT WITH FIO2 AT 30%, TV AT 450 AND RATE AT 20, SATURATING AT 98%, WITH FALL AND SAFETY PRECAUTION ENFORCED, IV LINE NOTED ON THE RT HAND G. 24 WITH DEXTROSE 5%-0.2% IVF INFUSING AT 70ML/HR, INTACT, LORENZO CATHETER IN PLACE, NO SIGN OF DISTRESS NOTED AND WILL CONTINUE TO MONITOR PT.
[2021-03-24 08:00] VITALS: BP 134/60
[2021-03-24 08:41] LABS: BASOPHILS % (AUTO) 0.1 % (0.0-2.0); EOSINOPHILS # (AUTO) 1.2 K/uL (0-0.4); HEMATOCRIT 21.7 % (36-52); HEMOGLOBIN 7.4 g/dL (12.0-18.0); LYMPHOCYTES % (AUTO) 15.1 % (20.5-51.1); MEAN CORPUSCULAR HEMOGLOBIN 32 pg (27-31); MEAN CORPUSCULAR HGB CONC 34 g/dL (33-37); MEAN CORPUSCULAR VOLUME 92.2 fL (80-94); MONOCYTES # (AUTO) 0.9 K/uL (0.8-1.0); MONOCYTES % (AUTO) 6.9 % (1.7-9.3); NEUTROPHILS # (AUTO) 9.2 K/uL (1.8-7.7); NEUTROPHILS % (AUTO) 68.9 % (42.2-75.2); PLATELET COUNT (AUTO) 307 K/uL (140-450); RED BLOOD CELL COUNT(AUTO) 2.36 MIL/uL (4.20-6.10); RED CELL DISTRIBUTION WIDTH 17.7 % (11.6-13.7); WHITE BLOOD COUNT (AUTO) 13.3 K/uL (4.8-10.8)
[2021-03-24 09:06] LABS: ANION GAP 15.4 (8-16); CARBON DIOXIDE 22.1 mmol/L (21-32); CHLORIDE 105 mmol/L (98-107); CREATININE 3.3 mg/dL (0.6-1.3); GLUCOSE 173 mg/dL (74-106); POTASSIUM 3.5 mmol/L (3.5-5.1); SODIUM SERUM 139 mmol/L (136-145); UREA NITROGEN, BLOOD 53 mg/dL (7-18)
[2021-03-24] MEDS ORDERED: CLIN600P4 IV (09:31)
[2021-03-24] MEDS ORDERED: ACET-1182 PO (09:31)
[2021-03-24] MEDS ORDERED: ROC1PM IV (09:31)
[2021-03-24] MEDS ORDERED: LANS30EC68 GT (09:31)
[2021-03-24 09:43] LABS: MAGNESIUM 1.9 mg/dL (1.8-2.4); PHOSPHORUS 4.6 mg/dL (2.5-4.9)
[2021-03-24] MEDS: LACTULOSE 20 GM/30 ML UDC PO SCH (11:24)
--- NOTE | 2021-03-24 11:24 | NUR ---
PT WAS GIVEN THE SCHEDULED LACTULOSE NOW VIA G-TUBE, NO RESIDUAL NOTED.
[2021-03-24] MEDS: DEXT 5% / NACL 0.2% 1,000 ML IV SCH (11:53)
[2021-03-24 12:00] VITALS: BP 152/65
[2021-03-24] MEDS: LORazepam 2 MG/ML VIAL IM/IVP PRN (12:07)
--- NOTE | 2021-03-24 12:20 | NUR ---
DR. JERRY CAME AND SAW THE PT NOW.
--- NOTE | 2021-03-24 13:48 | NUR ---
PT WAS CLEANED AND REPOSITIONED NOW.
--- NOTE | 2021-03-24 13:56 | NUR ---
CALLED ROSEANNE PIERRE AT [phone], AND GAVE REPORT TO STEF HER REGARDING CARE MANAGEMENT GIVEN TO PT AND RN VERBALIZED UNDERSTANDING.
--- NOTE | 2021-03-24 13:57 | NUR ---
ROCEPHIN WAS GIVEN TO PT NOW.
--- NOTE | 2021-03-24 14:00 | NUR ---
CALLED PT'S , VINITA ROQUE AND INFORMED THAT PT WILL BE TRANSFERRED BACK TO BACK TO [place] [place] AND VERBALIZED UNDERSTANDING.
--- NOTE | 2021-03-24 15:00 | NUR ---
DISCHARGED PT TO [facility] ACCOMPANIED BY [facility] TRANSPORT PERSONNEL, IV LINE ON THE RT HAND HAND G. 24 ON SALINE LOCK ,G-TUBE, AND LORENZO CATHETER WERE IN PLACE, PT WILL BE CONTINUING HIS ANTIBIOTICS IN THE FACILITY. NO SIGN OF DISTRESS NOTED.
== END 2021-03-24 15:00 | DRG 207 ==
LOC: MED 16:06 → MTU 22:12 → MMU 03-20 02:20
PROC: 5A1955Z Respiratory Ventilation, Greater than 96 Consecutive Hours (ICD-10-PCS; principal; 2021-03-19)
PROC: 30233N1 Transfusion of Nonautologous Red Blood Cells into Peripheral Vein, Percutaneous Approach (ICD-10-PCS; 2021-03-19)
DX: J96.20 Acute and chronic respiratory failure, unspecified whether with hypoxia or hypercapnia (principal); J69.0 Pneumonitis due to inhalation of food and vomit; N17.0 Acute kidney failure with tubular necrosis; E43 Unspecified severe protein-calorie malnutrition; K92.2 Gastrointestinal hemorrhage, unspecified; E87.0 Hyperosmolality and hypernatremia; D62 Acute posthemorrhagic anemia; I69.354 Hemiplegia and hemiparesis following cerebral infarction affecting left non-dominant side; Z99.11 Dependence on respirator [ventilator] status; I25.10 Atherosclerotic heart disease of native coronary artery without angina pectoris; I12.9 Hypertensive chronic kidney disease with stage 1 through stage 4 chronic kidney disease, or unspecified chronic kidney disease; Z20.822 Contact with and (suspected) exposure to COVID-19; E11.22 Type 2 diabetes mellitus with diabetic chronic kidney disease; N18.9 Chronic kidney disease, unspecified; Z93.0 Tracheostomy status; Z93.1 Gastrostomy status; Z68.27 Body mass index [BMI] 27.0-27.9, adult; Z88.8 Allergy status to other drugs, medicaments and biological substances
CPT/HCPCS: 36415; 36430; 71045; 74018; 76770; 80048; 80053; 81001; 82140; 82150; 82272; 82570; 82607; 82746; 83036; 83540; 83690; 83735; 83880; 84100; 84134; 84300; 84436; 84443; 84484; 85025; 85610; 85730; 86886; 86900; 86901; 86920; 87070; 87081; 87205; 94003; 96365; 96366; 99291; C9113; J0696; J2060; J2354; J2405; J2765; J2916; J3475; J3490; J7030; J7060; P9016; Q0092; Q5106